=== PATIENT | male | born 1960 | race Caucasian/White ===

== ENCOUNTER 2017-11-20 17:05 | Emergency (ER) | payer BC ==
--- OUTSIDE RECORDS SUMMARY | 2017-11-20 17:28 | XMS REPORT ---
:1960 External Reference #:[id number] Author Organization [facility] Address [address], [address] [place] [address] Phone [phone] Care Team Providers Name Role Phone Will Fong MD Care Team Information Floorperson Unavailable Will Fong MD Primary Care Physician Unavailable Payers Type Date Identification Numbers Payment Provider Subscriber Commercial Policy Number: [id number] Abdi Salmeron PayID: [id number] [address] [address] [place] [address] Problems Date Description Provider Status Onset: 02/17/2017 Taking medication Will Fong M.D. Active Onset: 02/17/2017 Screening for malignant neoplasm of Will Fong M.D. Active prostate Onset: 02/17/2017 Hyperlipidemia Will Fong M.D. Active Onset: 02/17/2017 Adult health examination Will Fong M.D. Active Onset: 02/17/2017 Encounter for screening for Will Fong M.D. Active nutritional disorder Onset: 02/28/2017 Elevated blood-pressure reading Will Fong M.D. Active without diagnosis of hypertension Onset: 10/31/2017 Arthralgia of the upper arm Yonas Dinero M.D. Active Family History Date Family Member(s) Problem(s) Comments : (age 76 Years) Father due to Lung Cancer : (age 51 Years) Mother due to Lymphoma Social History Type Date Description Comments Marital Status Lives With Diet Low Carb Occupation Self Employed Work Status Currently Working ETOH Use Currently consumes alcohol 3 GLASSES OFWINE Smoking Patient denies history of smoking Recreational Drug Use Denies Drug Use Daily Caffeine Current Caffeine User DAILY Exercise Type/Frequency Exercises regularly DAILY Allergies, Adverse Reactions, Alerts Date Description Reaction Status Severity Comments 02/17/2017 NKDA active Medications Medication Date Status Form Strength Qnty SIG Indications Ordering Provider Cholestene 07/01/ Active 600mg 2 capsules 2017 twice Andras, jun M.Vanna Ubiquinol 02/28/ Active Capsules 100mg 2 by mouth 2017 once daily Hope Solis Pycnogenol 02/28/ Active Tablets 100mg 1 by mouth Hetal, Complex 2017 every day Hope Solis Ultimate 02/28/ Active 2 capsules Hetal Nortic [place] 2017 daily. Hope Solis Zyflamend 02/28/ Active 2 capsules 2017 daily. Hope Solis Florastor 02/17/ Active Capsules 250mg 30caps 2 capsules 2017 twice Andras, daily. Hope Finasteride 02/16/ Active Tablets 1mg 90tabs 1 daily 2017 Hope Solis Multivitamin / Active Tablets 1 by mouth Unknown Adult 0000 every day Aspirin Adult / Active Tablets DR 81mg 1 by mouth Unknown Low Dose 0000 every day Vitamin B / Active Tablets 5000Units 1 by mouth Unknown Complex 0000 every day Vitamin B12 / Active Tablets ER 1000mcg 1 by mouth Unknown 0000 once a day Vitamin D / Active Tablets 5000Units 1 by mouth Hetal, every day MD Will Zinc /00/ Active Tablets 30mg 1 by mouth Unknown 0000 every day Resveratrol /00/ Active Capsules 150mg 2 capsules Unknown 0000 daily L Citrullin // Active 1 daily Unknown 0000 Tumeric 00/ Active 1 daily Unknown 0000 Niacin 00/ Active Tablets 100mg 1 by mouth Unknown 0000 every day Creatine /00/ Active Capsules 750mg 1 daily Unknown 0000 Magnesium /00/ Active Capsules 500mg 1 daily Unknown 0000 Curcumin 00/00/ Active Capsules 500mg 1 daily Unknown 0000 Milk Thistle / Active Capsules 250mg 1 by mouth Unknown 0000 twice daily Apple Cider / Active Tablets 500mg 1 daily Unknown Vinegar 0000 Co Q-10 / Hx Capsules 100mg 1 by mouth Unknown 0000 every day Probiotic / Hx Capsules 1 by mouth Unknown 0000 - every day 2017 Vitamin C / Hx Tablets 1000mg 1 by mouth Unknown 0000 every day Kelp / Hx Tablets 100mg 1 by mouth Unknown 0000 every day Selenium / Hx Tablets 100mcg 1 daily Unknown 0000 Alpha-Lipoic / Hx Tablets 100mg 1 daily Unknown Acid 0000 L-Carnitine / Hx Capsules 250mg 1 daily Unknown 0000 Fish Oil / Hx Capsules 1000mg by mouth Unknown 0000 every day Dha / Hx Capsules 200mg 1 daily Unknown 0000 Vital Signs Date Vital Result Comment 10/31/2017 BP Systolic 164 mmHg BP Diastolic 87 mmHg Body Temperature 96.9 F Heart Rate 55 /min Respiratory Rate 20 /min Weight 209.00 lb O2 % BldC Oximetry 97 % Ra Pain Level 5 left elbow 10/11/2017 BP Systolic Sitting Right Arm 161 mmHg BP Diastolic Sitting Right Arm 88 mmHg Body Temperature 97.2 F Heart Rate 59 /min Respiratory Rate 16 /min Height 71.5 inches 5'11.50" Weight 208.00 lb BMI (Body Mass Index) 28.6 kg/m2 BSA (Body Surface Area) 2.16 m2 Gary body weight in kilograms 79 O2 % BldC Oximetry 96 % 06/14/2017 BP Systolic 161 mmHg BP Diastolic 81 mmHg Heart Rate 56 /min Respiratory Rate 18 /min Height 71.5 inches 5'11.50" Weight 207.25 lb BMI (Body Mass Index) 28.5 kg/m2 BSA (Body Surface Area) 2.15 m2 Gary body weight in kilograms 79 O2 % BldC Oximetry 97 % 02/28/2017 BP Systolic Sitting Left Arm 162 mmHg BP Diastolic Sitting Left Arm 85 mmHg Heart Rate 54 /min Height 71.5 inches 5'11.50" Weight 210.00 lb BMI (Body Mass Index) 28.9 kg/m2 BSA (Body Surface Area) 2.16 m2 Gary body weight in kilograms 79 O2 % BldC Oximetry 99 % ra 02/17/2017 BP Systolic 137 mmHg BP Diastolic 87 mmHg Heart Rate 59 /min Respiratory Rate 14 /min Height 71.5 inches 5'11.50" Weight 203.12 lb BMI (Body Mass Index) 27.9 kg/m2 BSA (Body Surface Area) 2.13 m2 Gary body weight in kilograms 79 O2 % BldC Oximetry 97 % Results Test Date Test Result H/L Range Note Laboratory test finding 05/22/2017 HDL Cholesterol 72 mg/dL >40 1, 2 Dehydroepiandrosterone Sulfate 239.8 g/dL 48.9-344.2 1 Cholesterol 250 mg/dL High <200 1, 3 Direct LDL Cholesterol 05/22/2017 LDL Chol. (Direct) 166 mg/dL High 0-99 1 Laboratory test finding 05/22/2017 Triglycerides 93 mg/dL <150 1, 4 Apolipoprotein B 127 mg/dL 52-135 1, 5 Comprehensive Metabolic Panel 05/22/2017 Glucose 101 mg/dL 74-106 1 BUN 19 mg/dL High 7-18 1 Creatinine 1.0 mg/dL 0.6-1.3 1 Glom Filtration Rate, Estimate >60 mL/min >60 1 If >60 mL/min >60 1, 6 BUN/Creat 19.0 ratio 1 Sodium 143 mmol/L 136-145 1 Potassium 4.7 mmol/L 3.5-5.1 1 Chloride 106 mmol/L 98-107 1 Carbon Dioxide 31 mmol/L 21-32 1 Anion Gap 6 mEq/L Low 8-16 1 Calcium 9.3 mg/dL 8.5-10.1 1 Total Protein 6.7 g/dL 6.4-8.2 1 Albumin 4.1 g/dL 3.4-5.0 1 Globulin 2.6 g/dL 1.9-4.3 1 Alb/Glob 1.6 ratio 1 Bilirubin,Total 0.5 mg/dL 0.2-1.0 1 Sgot/Ast 17 U/L 15-37 1 SGPT/Alt 29 U/L 12-78 1 Alkaline Phosphatase 64 U/L 45-117 1 Laboratory test finding 05/22/2017 CK 117 U/L 39-308 1 CBS W/Automated Diff 02/20/2017 White Blood Count 5.3 K/uL 3.4-10.5 7 Red Blood Count 4.48 M/uL 4.20-5.80 7 Hemoglobin 14.6 gm/dL 12.8-17.0 7 Hematocrit 42.0 % 38.0-48.0 7 Mean Cell Volume 93.8 fl 80.0-96.0 7 Mean Corpuscular HGB 32.6 pg 27.0-33.0 7 Mean Corpuscular HGB Conc 34.8 g/dL 31.7-36.0 7 Platelet Count 171 K/uL 155-360 7 Red Cell Distri Width SD 41.1 fl 36-51 7 Red Cell Distri Width %CV 12.2 % 11.6-15.8 7 Mean Platelet Volume 11.5 fL High 6.6-10.6 7 Neut% 57.1 % 33.0-73.0 7 Lymph % 27.0 % 20.0-42.0 7 [place] % 14.6 % High 0.0-10.0 7 Eo% 1.3 % 0.0-6.6 7 Bas% 0.0 % 0.0-1.1 7 Neut# 3.02 K/uL 1.8-7.0 7 Lymph # 1.43 K/uL 1.0-4.0 7 [place] # 0.77 K/uL 0.0-0.8 7 Eos # 0.07 K/uL 0.0-0.5 7 Baso # 0.00 K/uL 0.0-0.1 7 Comprehensive Metabolic Panel 02/20/2017 Glucose 99 mg/dL 74-106 7 BUN 18 mg/dL 7-18 7 Creatinine 1.0 mg/dL 0.6-1.3 7 Glom Filtration Rate, Estimate >60 mL/min >60 7 If >60 mL/min >60 7, 8 BUN/Creat 18.0 ratio 7 Sodium 136 mmol/L 136-145 7 Potassium 4.2 mmol/L 3.5-5.1 7 Chloride 101 mmol/L 98-107 7 Carbon Dioxide 29 mmol/L 21-32 7 Anion Gap 6 mEq/L Low 8-16 7 Calcium 9.2 mg/dL 8.5-10.1 7 Total Protein 6.8 g/dL 6.4-8.2 7 Albumin 4.0 g/dL 3.4-5.0 7 Globulin 2.8 g/dL 1.9-4.3 7 Alb/Glob 1.4 ratio 7 Bilirubin,Total 0.5 mg/dL 0.2-1.0 7 Sgot/Ast 20 U/L 15-37 7 SGPT/Alt 32 U/L 12-78 7 Alkaline Phosphatase 60 U/L 45-117 7 Reflex add FT3? Y 7 Reflex add FT4? Y 7 Magnesium 02/20/2017 Magnesium 2.1 mg/dL 1.8-2.4 7 Reflex add FT3? Y 7 Reflex add FT4? Y 7 Ua RFX Micro & Culture II 02/20/2017 Urine Color YELLOW Yellow 7 Urine Clarity CLEAR Clear 7 Urine Glucose - Dipstick NEGATIVE mg/dL Negative 7 Urine Bilirubin - Dipstick NEGATIVE Negative 7 Urine Ketone NEGATIVE mg/dL Negative 7 Urine Specific [place] <=1.005 Low 1.010-1.030 7 Urine Blood NEGATIVE Negative 7 Urine PH 7.0 6.5-7.5 7 Urine Protein - Dipstick NEGATIVE mg/dL Negative 7 Urine Urobilinogen - Dipstick 0.2 E.U./dL 0.2-1.0 7 Urine Nitrite - Dipstick NEGATIVE Negative 7 Urine Leuk Esterase NEGATIVE Negative 7 Source: URINE, CLEAN CAT <SEE NOTE> 7, 9 Prostate Specific Antigen 02/20/2017 PSA ([place] Loci) 0.75 ng/mL < 4.0 7 , 10 Reflex add FT3? Y 7 Reflex add FT4? Y 7 TSH Reflex FT4 And/Or FT3 02/20/2017 Thyroid Stim Hormone 2.76 uIU/mL 0.30-4.20 7 Reflex add FT3? Y 7 Reflex add FT4? Y 7 Laboratory test finding 02/20/2017 Vitamin D,25-Hydroxy 71.9 ng/mL 30.0- 100.0 7, 11 Type And Screen 02/20/2017 Patient Blood Type A POS 7 Antibody Screen Negative Negative 7 Laboratory test finding 02/20/2017 Abo/RH Type <pending> Homocyst(E)Ine, P/S 02/20/2017 Homocyst(e)ine, P/S 10.4 umol/L 0.0-15.0 7, 12 Triglycerides 02/20/2017 Triglycerides 92 mg/dL <150 7, 13 Reflex add FT3? Y 7 Reflex add FT4? Y 7 Laboratory test 02/20/2017 Apolipoprotein B 163 mg/dL High 52-135 7, 14 finding C-Reactive 02/20/2017 C-Reactive 0.63 mg/L <3.0 7 Protein,Cardiac Protein,Cardiac Reflex add FT3? Y 7 Reflex add FT4? Y 7 Direct LDL Cholesterol 02/20/2017 LDL Chol. (Direct) 226 mg/dL High 0-99 7 Comment (SEE NOTE) 7, 15 HDL Cholesterol 02/20/2017 HDL Cholesterol 72 mg/dL >40 7, 16 Reflex add FT3? Y 7 Reflex add FT4? Y 7 1 E78.5 Z79.899 2 Reference Guidelines*: Low HDL: ..... < 40 mg/dL Normal: ..... 40-60 mg/dL Desirable: ... > 60 mg/dL *The National Cholesterol Education Program(NCEP) 3 Reference Guidelines*: Desirable: ........... < 200 mg/dL Borderline High: ..... 200-239 mg/dL High: ................ >=240 mg/dL * The National Cholesterol Education Program (NCEP) 4 Reference Guidelines*: Normal: ............. < 150 mg/dL Borderline High: .... 150-199 mg/dL High: ............... 200-499 mg/dL Very High: .......... > 500 mg/dL * Source: National Cholesterol Education Program (NCEP) 5 Performed at: RN - [facility] [address] [id number] [facility] [employer]: Torri Yung MD, Phone: [phone] Note: Persistent reduction for 3 months or more in an eGFR <60 mL/min/1.73 m2 defines CKD. Patients with eGFR values >/=60 mL/min/1.73 m2 may also have CKD if evidence of persistent proteinuria is present. The original MDRD equation for estimated GFR is not valid for patients less than 18 years of age. Additional information may be found at www.kdoqi.org. 7 E78.5 Z79.899 Z12.5 Z13.21 Z00.00 8 Note: Persistent reduction for 3 months or more in an eGFR <60 mL/min/1.73 m2 defines CKD. Patients with eGFR values >/=60 mL/min/1.73 m2 may also have CKD if evidence of persistent proteinuria is present. The original MDRD equation for estimated GFR is not valid for patients less than 18 years of age. Additional information may be found at www.kdoqi.org. 9 URINE, CLEAN CATCH 10 THIS ASSAY IS NOT INTENDED A CANCER SCREENING TEST The concentration of PSA in a given specimen, determined with assays from different manufacturers, can vary due to differences in assay methods and reagent specificity. Values obtained from different assay methods cannot be used interchangeably. Method: Siemens Dimension [place] Chemiluminescent immunoassay. 11 Vitamin D deficiency has been defined by the [place] of [employer] and an Endocrine Society practice guideline as a level of serum 25-OH vitamin D less than 20 ng/mL (1,2). The Endocrine Society went on to further define vitamin D insufficiency as a level between 21 and 29 ng/mL (2). 1. IOM ([place] of Medicine). 2010. Dietary reference intakes for calcium and D. [place]: The National Academies Press. 2. Jennifer MF, Ronald ORTIZ, Abdiaziz ROSADO, et al. Evaluation, treatment, and prevention of vitamin D deficiency: an Endocrine Society clinical practice guideline. JCEM. 2010; 96(7):1911-30. Performed at: RN - [facility] [address] [id number] [place] [employer]: Torri Yung MD, Phone: [phone] 12 Performed at: RN - [facility] [address] [id number] [place] [employer]: Torri Yung MD, Phone: [phone] 13 Reference Guidelines*: Normal: ............. < 150 mg/dL Borderline High: .... 150-199 mg/dL High: ............... 200-499 mg/dL Very High: .......... > 500 mg/dL * Source: National Cholesterol Education Program (NCEP) 14 Performed at: RN [facility] [address] [id number] [place] [employer]: Torri Yung MD, Phone: [phone] Possible Familial Hypercholesterolemia. FH should be suspected when fasting LDL cholesterol is above 189 mg/dL or non-HDL cholesterol is above 219 mg/dL. A family history of high cholesterol and heart disease in 1st degree relatives should be collected. J Clin Lipidol 2011;5:133- 140 16 Reference Guidelines*: Low HDL: ..... < 40 mg/dL Normal: ..... 40-60 mg/dL Desirable: ... > 60 mg/dL *The National Cholesterol Education Program(NCEP) Procedures Date CPT Code Description Status 10/11/2017 94658 Aspiration/Injection joint Completed intermediate(wrist/ankle/elbow/olbursa 03/16/2017 59434 EKG Interpretation And Report Only Completed 02/06/2014 Colonoscopy Completed Encounters Type Date Location Provider CPT E/M Dx Office Visit 10/31/2017 Primary Care Office Yonas Dinero [id number] M25.522 8:30a MKayla Office Visit 10/11/2017 Primary Care Office Diana Li 67852 M70.22 8:30a HJESUS Torres Office Visit 06/14/2017 Primary Care Office Will Fong M.D. 01128 R03.0 11:20a E78.5 Z79.899 Office Visit 02/28/2017 3:40p Primary Care Office Will Fong M.D. 52253 Z79.899 E78.5 R03.0 Plan of Care Future Appointment(s):11/13/2017 10:40 am - Will Fong M.D. at [facility] [id number]/31/2017 - Yonas Dinero M.D.M25.522 Pain in left elbow
[2017-11-20 17:40] VITALS: BP 157/87
--- NOTE | 2017-11-20 18:10 | ED ---
Throat Pain/Nasal Congestion - HPI Summary HPI Summary: 57 yr old male with the complaint of sore throat. Onset four days ago. The patient complains of only mild congestion otherwise, and myalgias. No cough. No fever. - History of Current Complaint Chief Complaint: UCRespiratory Time Seen by Provider: 11/20/17 17:42 - Allergies/Home Medications Allergies/Adverse Reactions: Allergies Allergy/AdvReac Type Severity Reaction Status Date / Time No Known Allergies Allergy Verified 11/20/17 17:33 Home Medications: Home Medications Ibuprofen/Pseudoephedrine HCl [Advil Cold & Sinus] 1 tab PO PRN 11/20/17 [ History] PMH/Surg Hx/FS Hx/Imm Hx Infectious Disease History: No Infectious Disease History: Denies: Traveled Outside the [place] in Last 30 Days - Family History Known Family History: Positive: None - Social History Occupation: Works From/At Home Lives: With Family Alcohol Use: Occasionally Substance Use Type: Reports: None Smoking Status (MU): Never Smoked Tobacco Review of Systems Constitutional: Negative Eyes: Negative Positive: Sore Throat Positive: Myalgia All Other Systems Reviewed And Are Negative: Yes Physical Exam Triage Information Reviewed: Yes Vital Signs On Initial Exam: Initial Vitals Temp Pulse Resp BP Pulse Ox 98.1 F 75 17 157/87 100 11/20/17 17:35 11/20/17 17:35 11/20/17 17:35 11/20/17 17:35 11/20/17 17:35 Vital Signs Reviewed: Yes Appearance: Positive: Well-Appearing, No Pain Distress Skin: Positive: Warm, Skin Color Reflects Adequate Perfusion Head/Face: Positive: Normal Head/Face Inspection Eyes: Positive: EOMI ENT: Positive: Pharyngeal erythema, TMs normal. Negative: Nasal congestion, Nasal drainage Neck: Positive: Nontender Respiratory/Lung Sounds: Positive: Clear to Auscultation, Breath Sounds Present Cardiovascular: Positive: RRR. Negative: Murmur Abdomen Description: Positive: Nontender Musculoskeletal: Positive: Strength/ROM Intact Neurological: Positive: Sensory/Motor Intact, Alert, Oriented to Person Place, Time, CN Intact II-III Psychiatric: Positive: Normal - Heather Coma Scale Best Eye Response: 4 - Spontaneous Best Motor Response: 6 - Obeys Commands Best Verbal Response: 5 - Oriented Coma Scale Total: 15 Diagnostics - Vital Signs Vital Signs Temp Pulse Resp BP Pulse Ox 11/20/17 17:35 98.1 F 75 17 157/87 100 - Laboratory Lab Results: Lab Results 11/20/17 Range/Units 17:44 Group A Strep Rapid Negative (Negative) Lab Statement: Any lab studies that have been ordered have been reviewed, and results considered in the medical decision making process. EENT Course/Dx - Course Course Of Treatment: 57 yr old male with the complaint of sore throat. Rapid strep neg. FU with PMD fo rBP recheck. - Diagnoses Provider Diagnoses: Hypertension, Pharyngitis Discharge - Sign-Out/Discharge Documenting (check all that apply): Patient Departure All imaging exams completed and their final reports reviewed: No Studies - Discharge Plan Condition: Good Disposition: HOME Patient Education Materials: Pharyngitis (ED), Hypertension (ED) Referrals: Will Fong MD [Primary Care Provider] - 2 Days - Billing Disposition and Condition Condition: GOOD Disposition: Home
== END 2017-11-20 18:19 | disposition home or self-care (01) ==
LOC: UCCORT 17:05
DX: I10 Essential (primary) hypertension (principal); J02.9 Acute pharyngitis, unspecified
CPT/HCPCS: 87651; 99201; G0463